=== PATIENT | female | born 1965 | race Caucasian/White ===

== ENCOUNTER 2018-11-28 13:58 | Emergency (ER) | payer BC ==
[2018-11-28 14:45] VITALS: BP 137/82
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
[2018-11-28] MEDS ORDERED: Albuterol/Ipratropium NEB.SOL* Albuterol 2.5 MG/Ipratropium 0.5 MG 3 ML INH ONE (16:08)
== END 2018-11-28 16:45 | disposition home or self-care (01) ==
LOC: UCEAST 13:58
DX: J06.9 Acute upper respiratory infection, unspecified (principal); J98.8 Other specified respiratory disorders; Z88.0 Allergy status to penicillin; Z91.018 Allergy to other foods; Z91.09 Other allergy status, other than to drugs and biological substances
CPT/HCPCS: 99202; A9270-GY; G0463